=== PATIENT | male | born 1990 | race American Indian/Alaskan Native ===

== ENCOUNTER 2018-04-04 20:02 | Emergency (ER) | payer SELFPAY ==
[2018-04-04 21:38] LABS: Basophils # (Auto) 0.1 K/mm3 (0.0-0.1); Basophils % (Auto) 0.8 % (0.0-1.8); Eosinophils % (Auto) 0.3 % (0.0-4.3); Hematocrit 41.9 % (35.5-45.6); Hemoglobin 13.9 gm/dl (11.8-15.2); Lymphocytes # (Auto) 1.6 K/mm3 (1.2-5.4); Lymphocytes % (Auto) 19.2 % (13.4-35.0); Mean Corpuscular HGB Conc 33 % (32-34); Mean Corpuscular Hemoglobin 28 pg (28-32); Mean Corpuscular Volume 84 fl (84-94); Monocytes # (Auto) 0.8 K/mm3 (0.0-0.8); Monocytes % (Auto) 9.3 % (0.0-7.3); Platelet Count 249 K/mm3 (140-440); Red Blood Count 4.97 M/mm3 (3.65-5.03); Red Cell Distribution Width 12.9 % (13.2-15.2)
[2018-04-04 21:53] LABS: Alanine Aminotransferase 16 units/L (7-56); Albumin 4.7 g/dL (3.9-5); BUN/Creatinine Ratio 15; Blood Urea Nitrogen 15 mg/dL (9-20); Calcium 9.3 mg/dL (8.4-10.2); Hemolysis Index 16; Lipase 39 units/L (13-60)
[2018-04-05 02:55] LABS: Bilirubin,Urine NEG (Negative); Blood,Urine NEG (Negative); Color,Urine Yellow (Yellow); Mucus,Urine 2+ /HPF
[2018-04-05] MEDS ORDERED: PEPCID IV ONE (03:21)
[2018-04-05] MEDS ORDERED: SUBLIMAZE IV ONE (03:21)
[2018-04-05] MEDS ORDERED: KEPPRA 500 MG/NS 0.82% 100 ML 500 MG/100 ML BAG IV ONE (03:21)
[2018-04-05] MEDS ORDERED: ZOFRAN IV ONE (03:21)
[2018-04-05] MEDS ORDERED: NACL 0.9% 1000 ML 1,000 ML IV ONE (03:21)
--- NOTE | 2018-04-05 03:26 | Emergency Department Report ---
HPI - General Chief Complaint: Abdominal Pain Time Seen by Provider: 04/05/18 03:14 - HPI HPI: Room 3 The patient is a 27-year-old male presenting with a chief complaint of nausea vomiting and abdominal pain. She states for the past 5 days she's been unable to tolerate anything by mouth as he just vomits it back up. Patient states she has diffuse burning abdominal pain patient states he had 2 episodes of diarrhea 4 days ago but has not had a bowel movement since. The patient complains of subjective fever. The patient states 2 nights ago he went to [facility] for evaluation he was given IV fluids and a CAT scan of the abdomen but eventually discharged home. The patient states when he went home he continued to have vomiting anytime he tried to eat. Family convinced patient to come back to the hospital for further evaluation Location: Abdomen Duration: 5 days Quality: Burning Severity: Moderate Modifying factors: [see above] Context: [see above] Mode of transportation: [not driving] ED Past Medical Hx - Past Medical History Hx Seizures: Yes Additional medical history: gastric ulcers - Surgical History Past Surgical History?: No - Family History Family history: no significant - Social History Smoking Status: Former Smoker (none 10 years) Substance Use Type: None - Medications Home Medications: Home Medications Medication Instructions Recorded Confirmed Last Taken Type Famotidine [Pepcid] 20 mg PO BID #30 tablet 04/05/18 Unknown Rx HYDROcodone/APAP 5-325 [[place] 1 - 2 each PO Q6HR PRN #10 tablet 04/05/18 Unknown Rx 5/325] Promethazine HCl [Phenergan SUPPOS] 25 mg RC Q6H PRN #10 supp.rect 04/05/18 Unknown Rx Promethazine [Phenergan TAB] 25 mg PO Q6HR PRN #20 tab 04/05/18 Unknown Rx ED Review of Systems ROS: Stated complaint: NVD Other details as noted in HPI Constitutional: fever (subjective) Eyes: denies: eye pain ENT: throat pain (from vomiting) Cardiovascular: denies: chest pain Gastrointestinal: abdominal pain, nausea, vomiting, diarrhea Genitourinary: denies: dysuria Musculoskeletal: denies: back pain Neurological: denies: headache Physical Exam - Physical Exam Vital Signs: Vital Signs 04/04/18 04/04/18 04/05/18 21:07 21:13 02:54 Temperature 99.3 F 99.3 F Pulse Rate 74 63 Respiratory 14 18 Rate Blood Pressure 118/67 118/67 Blood Pressure [Left] O2 Sat by Pulse 100 100 99 Oximetry 04/05/18 04/05/18 03:00 03:06 Temperature 99.1 F Pulse Rate 58 L Respiratory 14 Rate Blood Pressure 115/68 Blood Pressure 117/62 [Left] O2 Sat by Pulse 100 100 Oximetry Physical Exam: GENERAL: The patient is well-developed well-nourished male lying on stretcher not appearing to be in acute distress. [] HEENT: Normocephalic. Atraumatic. Extraocular motions are intact. Patient has moist mucous membranes. NECK: Supple. Trachea midline CHEST/LUNGS: Clear to auscultation. There is no respiratory distress noted. HEART/CARDIOVASCULAR: Regular. There is no tachycardia. There is no gallop rub or murmur. ABDOMEN: Abdomen is soft, with mild discomfort to palpation in the midepigastric and right suprapubic region. Patient has normal bowel sounds. There is no abdominal distention. SKIN: There is no rash. There is no edema. There is no diaphoresis. NEURO: The patient is awake, alert, and oriented. The patient is cooperative. The patient has normal speech MUSCULOSKELETAL: There is no evidence of acute injury. ED Course Vital Signs 04/04/18 04/04/18 04/05/18 21:07 21:13 02:54 Temperature 99.3 F 99.3 F Pulse Rate 74 63 Respiratory 14 18 Rate Blood Pressure 118/67 118/67 Blood Pressure [Left] O2 Sat by Pulse 100 100 99 Oximetry 04/05/18 04/05/18 03:00 03:06 Temperature 99.1 F Pulse Rate 58 L Respiratory 14 Rate Blood Pressure 115/68 Blood Pressure 117/62 [Left] O2 Sat by Pulse 100 100 Oximetry - Reevaluation(s) Reevaluation #1: 04/05/18 05:10 Patient states he is feeling improved and his nausea and pain are controlled. Will do a po challenge Reevaluation #2: 04/05/18 05:25 Patient tolerating po well. Patient happy and states he hasn't felt this good in a long time ED Medical Decision Making - Lab Data Result diagrams: 04/04/18 21:23 04/04/18 21:23 Laboratory Tests 04/04/18 04/04/18 04/04/18 02:34 21:23 21:23 WBC 8.6 RBC 4.97 Hgb 13.9 Hct 41.9 MCV 84 MCH 28 MCHC 33 RDW 12.9 L Plt Count 249 Lymph % (Auto) 19.2 [place] % (Auto) 9.3 H Eos % (Auto) 0.3 Baso % (Auto) 0.8 Lymph # 1.6 [place] # 0.8 Eos # 0.0 Baso # 0.1 Seg Neutrophils % 70.4 H Seg Neutrophils # 6.0 Sodium 135 L Potassium 4.0 Chloride 97.9 L Carbon Dioxide 24 Anion Gap 17 BUN 15 Creatinine 1.0 Estimated GFR > 60 BUN/Creatinine Ratio 15 Glucose 108 H Calcium 9.3 Total Bilirubin 0.80 AST 18 ALT 16 Alkaline Phosphatase 58 Total Protein 7.3 Albumin 4.7 Albumin/Globulin Ratio 1.8 Lipase 39 Urine Color Yellow Urine Turbidity Clear Urine pH 6.0 Ur Specific [place] 1.029 Urine Protein 30 mg/dl Urine Glucose (UA) Neg Urine Ketones Neg Urine Blood Neg Urine Nitrite Neg Urine Bilirubin Neg Urine Urobilinogen 4.0 Ur Leukocyte Esterase Tr Urine WBC (Auto) 31.0 H Urine RBC (Auto) 2.0 Urine Mucus 2+ - Differential Diagnosis gastritis, GERD, Critical care attestation.: If time is entered above; I have spent that time in minutes in the direct care of this critically ill patient, excluding procedure time. ED Disposition Clinical Impression: Nausea & vomiting, Abdominal pain Disposition: DC-01 TO HOME OR SELFCARE Is pt being admited?: No Does the pt Need Aspirin: No Condition: Stable Instructions: Acute Nausea and Vomiting (ED), Abdominal Pain (ED) Additional Instructions: Return to the emergency department immediately should you develop worsening symptoms, fever, inability to tolerate food or liquid or any other concerns. Prescriptions: Famotidine [Pepcid] 20 mg PO BID #30 tablet HYDROcodone/APAP 5-325 [[place] 5/325] 1 - 2 each PO Q6HR PRN #10 tablet PRN Reason: Pain Promethazine [Phenergan TAB] 25 mg PO Q6HR PRN #20 tab PRN Reason: Nausea Promethazine HCl [Phenergan SUPPOS] 25 mg RC Q6H PRN #10 supp.rect PRN Reason: Vomiting Referrals: [facility] [Outside] - 3-5 Days HAYDEE SARMIENTO MD [Staff Physician] - 3-5 Days (Dr. Sarmiento is a primary physician. Please follow up with him to be established as a patient) BECKI YUSUF MD [Staff Physician] - 3-5 Days (Dr. Yusuf is a plug saw operator. Please follow up with him for further evaluation) Time of Disposition: 05:29
[2018-04-05 05:46] VITALS: BP 131/71
== END 2018-04-05 05:50 | disposition home or self-care (01) ==
LOC: ED 20:02
DX: R11.2 Nausea with vomiting, unspecified (principal); R10.13 Epigastric pain; R10.31 Right lower quadrant pain; R19.7 Diarrhea, unspecified; Z87.891 Personal history of nicotine dependence
CPT/HCPCS: 36415; 80053; 81001; 83690; 85025; 96361; 96365; 96375; 99283; J1953; J2405; J3010; J7030

== ENCOUNTER 2018-05-01 09:33 | Emergency (ER) | payer SELFPAY ==
[2018-05-01 09:58] VITALS: BP 120/79
[2018-05-01] MEDS ORDERED: REGLAN IV ONE (10:22)
[2018-05-01] MEDS ORDERED: ZOFRAN IV ONE (10:22)
[2018-05-01] MEDS ORDERED: NACL 0.9% 1000 ML 1,000 ML IV ONE (10:22)
--- NOTE | 2018-05-01 10:25 | Emergency Department Report ---
ED N/V/D HPI - General Chief complaint: Abdominal Pain Stated complaint: VOMITING Time Seen by Provider: 05/01/18 10:12 Source: patient Mode of arrival: Ambulatory Limitations: No Limitations - History of Present Illness Initial comments: Here month ago for same 3 days nausea and vomiting does admit to the THC use, denies diarrhea ,+intermittent abdominal cramps no fever no black or bloody stool no recent travel or known sick contacts, here for intermittent abdominal cramps with nausea vomiting, was referred to Dr. Yusuf last month and never followed up no dizziness no syncope no previous abdominal surgery MD complaint: nausea, vomiting -: Gradual, days(s) Description of Vomiting: watery Location: diffuse Radiation: none Severity: mild, moderate Quality: cramping Consistency: intermittent Associated Symptoms: denies other symptoms, malaise, nausea/vomiting. denies: myalgias, chest pain, cough, diaphoresis, fever/chills, headaches, loss of appetite, rash, dysuria, shortness of breath, syncope, weakness - Related Data Previous Rx's Medication Instructions Recorded Last Taken Type HYDROcodone/APAP 5-325 [[place] 1 - 2 each PO Q6HR PRN #10 tablet 04/05/18 Unknown Rx 5/325] Promethazine HCl [Phenergan SUPPOS] 25 mg RC Q6H PRN #10 supp.rect 04/05/18 Unknown Rx Promethazine [Phenergan TAB] 25 mg PO Q6HR PRN #20 tab 04/05/18 Unknown Rx Famotidine [Pepcid] 20 mg PO BID #30 tablet 05/01/18 Unknown Rx Metoclopramide [Reglan] 10 mg PO TID PRN #15 tab 05/01/18 Unknown Rx Ondansetron [Zofran Odt] 4 mg PO Q8HR PRN #15 tab.rapdis 05/01/18 Unknown Rx Allergies Allergy/AdvReac Type Severity Reaction Status Date / Time No Known Allergies Allergy Verified 05/01/18 09:55 ED Review of Systems ROS: Stated complaint: VOMITING Other details as noted in HPI Comment: All other systems reviewed and negative Constitutional: denies: diaphoresis, fever Eyes: denies: eye discharge, vision change ENT: denies: dental pain, hearing loss, epistaxis Respiratory: denies: orthopnea, shortness of breath, SOB with exertion, SOB at rest, stridor Cardiovascular: denies: chest pain, palpitations, dyspnea on exertion, orthopnea , edema, syncope, paroxysmal nocturnal dyspnea Gastrointestinal: nausea, vomiting. denies: diarrhea, constipation, hematemesis , melena, hematochezia Genitourinary: denies: testicular pain, testicular mass Musculoskeletal: denies: joint swelling, arthralgia Skin: denies: pruritus Neurological: denies: numbness, paresthesias, confusion Psychiatric: denies: auditory hallucinations, visual hallucinations, homicidal thoughts Hematological/Lymphatic: denies: easy bleeding, easy bruising ED Past Medical Hx - Past Medical History Hx Seizures: Yes Additional medical history: gastric ulcers - Social History Smoking Status: Never Smoker - Medications Home Medications: Home Medications Medication Instructions Recorded Confirmed Last Taken Type HYDROcodone/APAP 5-325 [[place] 1 - 2 each PO Q6HR PRN #10 tablet 04/05/18 Unknown Rx 5/325] Promethazine HCl [Phenergan SUPPOS] 25 mg RC Q6H PRN #10 supp.rect 04/05/18 Unknown Rx Promethazine [Phenergan TAB] 25 mg PO Q6HR PRN #20 tab 04/05/18 Unknown Rx Famotidine [Pepcid] 20 mg PO BID #30 tablet 05/01/18 Unknown Rx Metoclopramide [Reglan] 10 mg PO TID PRN #15 tab 05/01/18 Unknown Rx Ondansetron [Zofran Odt] 4 mg PO Q8HR PRN #15 tab.rapdis 05/01/18 Unknown Rx ED Physical Exam - General Limitations: No Limitations General appearance: alert - Head Head exam: Present: atraumatic, normocephalic - Eye Eye exam: Present: PERRL, EOMI - ENT ENT exam: Present: normal exam, normal orophraynx - Neck Neck exam: Present: normal inspection. Absent: tenderness, meningismus - Respiratory Respiratory exam: Present: normal lung sounds bilaterally. Absent: respiratory distress, wheezes, rales, rhonchi, stridor, accessory muscle use, decreased breath sounds, prolonged expiratory - Cardiovascular Cardiovascular Exam: Present: regular rate, normal rhythm. Absent: irregular rhythm - GI/Abdominal GI/Abdominal exam: Present: soft. Absent: distended, tenderness, guarding, rebound, rigid, mass, pulsatile mass - Extremities Exam Extremities exam: Present: normal inspection, other (cr =2 s). Absent: calf tenderness - Back Exam Back exam: Present: normal inspection. Absent: CVA tenderness (L), muscle spasm , paraspinal tenderness, vertebral tenderness - Neurological Exam Neurological exam: Present: alert, oriented X3, CN II-XII intact. Absent: motor sensory deficit - Psychiatric Psychiatric exam: Present: normal affect. Absent: homicidal ideation, suicidal ideation (mild dehydration) ED Course Vital Signs 05/01/18 09:55 Temperature 98.3 F Pulse Rate 65 Respiratory 18 Rate Blood Pressure 120/79 O2 Sat by Pulse 99 Oximetry ED Medical Decision Making - Lab Data Result diagrams: 05/01/18 10:38 05/01/18 10:38 - Medical Decision Making Laboratory studies unremarkable no acute abdomen at this time tolerating by mouth stable for discharge Critical care attestation.: If time is entered above; I have spent that time in minutes in the direct care of this critically ill patient, excluding procedure time. ED Disposition Clinical Impression: Cyclic vomiting syndrome Disposition: - TO HOME OR SELFCARE Is pt being admited?: No Condition: Stable Instructions: Acute Nausea and Vomiting (ED) Additional Instructions: See the doctor listed return if new alarming symptoms Prescriptions: Famotidine [Pepcid] 20 mg PO BID #30 tablet Metoclopramide [Reglan] 10 mg PO TID PRN #15 tab PRN Reason: Nausea And Vomiting Ondansetron [Zofran Odt] 4 mg PO Q8HR PRN #15 tab.rapdis PRN Reason: Nausea And Vomiting Referrals: PRIMARY CARE,MD [Primary Care Provider] - 3-5 Days [facility] [Provider Group] - 3-5 Days Time of Disposition: 12:40
[2018-05-01] MEDS ORDERED: KEPPRA PO ONE (11:08)
[2018-05-01 11:43] LABS: Hematocrit 42.5 % (35.5-45.6); Mean Corpuscular HGB Conc 33 % (32-34); Mean Corpuscular Hemoglobin 28 pg (28-32); Mean Corpuscular Volume 85 fl (84-94); Red Blood Count 4.98 M/mm3 (3.65-5.03); Red Cell Distribution Width 13.6 % (13.2-15.2)
[2018-05-01 11:49] LABS: Alanine Aminotransferase 20 units/L (7-56); Albumin 4.5 g/dL (3.9-5); BUN/Creatinine Ratio 24; Blood Urea Nitrogen 19 mg/dL (9-20); Calcium 9.9 mg/dL (8.4-10.2); Hemolysis Index 44; Lipase 29 units/L (13-60)
[2018-05-01 12:17] LABS: Basophils % (Manual) 0 % (0.0-1.8); Total Cells Counted 100
[2018-05-01 12:18] LABS: Platelet Estimate Consistent w Auto
[2018-05-01 12:19] LABS: Platelet Count 188 K/mm3 (140-440)
== END 2018-05-01 12:55 | disposition home or self-care (01) ==
LOC: ED 09:33
DX: G43.A0 Cyclical vomiting, in migraine, not intractable (principal)
CPT/HCPCS: 36415; 80053; 83690; 85007; 85025; 96361; 96374; 96375; 99283; J2405; J2765; J7030